=== PATIENT | male | born 1935 | race Caucasian/White ===

== ENCOUNTER → 2024-12-14 | Outpatient (BNVA) | payer MEDICARE, SELFPAY | END | disposition home or self-care (01) | PROVIDERS: PCP Family Medicine; Referring Provider Family Medicine; Visit Provider Urology | DX: C61 Malignant neoplasm of prostate (principal); R32 Unspecified urinary incontinence; Z85.51 Personal history of malignant neoplasm of bladder; I12.9 Hypertensive chronic kidney disease with stage 1 through stage 4 chronic kidney disease, or unspecified chronic kidney disease; N18.2 Chronic kidney disease, stage 2 (mild); I25.10 Atherosclerotic heart disease of native coronary artery without angina pectoris; Z92.3 Personal history of irradiation | CPT/HCPCS: 99203; G0463 ==

== ENCOUNTER → 2025-01-23 | Outpatient (CLI) | payer MEDICARE, SELFPAY ==
--- NOTE | 2025-01-23 11:38 | XR_ITS ---
Examination:Right hip AP, lateral, AP pelvis 3 views Technique: Hip AP lateral, AP pelvis, 3 views Exam date and time:January 23, 2025 1329 hours INDICATIONS: Patient fell 2 days ago with injury to the right hip, right hip pain. FINDINGS: Bilateral hip hemiarthroplasties. Satisfactory alignment. No loosening of the prosthetic components Bones of the pelvis intact IMPRESSION: Bilateral hip hemiarthroplasties with satisfactory alignment. No loosening of the prosthetic components No fractures.
--- NOTE | 2025-01-23 11:38 | XR_ITS ---
Examination: Left knee 4 views TECHNIQUE: AP oblique lateral axial left knee 4 views Date and time: January 23, 2025 1229 hours INDICATIONS: Patient fell 2 days ago with injury to knee, knee pain. FINDINGS: Advanced osteoarthritis medial patellofemoral joints No fracture No patellar dislocation Moderate knee effusion IMPRESSION: No acute fracture
== END | disposition home or self-care (01) ==
PROVIDERS: PCP Family Medicine; Referring Provider Family Medicine; Visit Provider Family Medicine
DX: M25.562 Pain in left knee (principal); M25.551 Pain in right hip
CPT/HCPCS: 73502; 73564